=== PATIENT | female | born 1995 | race Two or more races ===

== ENCOUNTER 2019-11-09 16:24 | Emergency (ER) | payer MEDICAID ==
[~2019-11-09] VITALS: Ht 180.3 cm; Wt 117.9 kg
[2019-11-09 16:31] VITALS: BP 125/65
== END 2019-11-09 17:33 | disposition home or self-care (01) ==
LOC: ER 16:24
DX: L73.2 Hidradenitis suppurativa (principal)

== ENCOUNTER 2019-11-15 11:53 | Emergency (ER) | payer MEDICAID ==
[~2019-11-15] VITALS: Ht 180.3 cm; Wt 61.1 kg
[2019-11-15 11:59] VITALS: BP 129/92
== END 2019-11-15 12:53 | disposition home or self-care (01) ==
LOC: ER 11:53
DX: L02.412 Cutaneous abscess of left axilla (principal)

== ENCOUNTER 2019-11-17 11:56 | Emergency (ER) | payer MEDICAID ==
[~2019-11-17] VITALS: Ht 180.3 cm; Wt 121.1 kg
[2019-11-17 12:06] VITALS: BP 102/65
== END 2019-11-17 13:19 | disposition home or self-care (01) ==
LOC: ER 11:56
DX: L02.412 Cutaneous abscess of left axilla (principal); Z48.00 Encounter for change or removal of nonsurgical wound dressing